=== PATIENT | male | born 1950 | race Caucasian/White ===

== ENCOUNTER → 2022-01-18 11:47 | Outpatient (BNVA) | payer MEDICARE, SELFPAY | PROVIDERS: PCP Family Medicine; Visit Provider Family Medicine | DX: Z51.81 Encounter for therapeutic drug level monitoring (principal); E11.9 Type 2 diabetes mellitus without complications; E53.8 Deficiency of other specified B group vitamins; R35.0 Frequency of micturition; Z13.220 Encounter for screening for lipoid disorders; I10 Essential (primary) hypertension; I25.10 Atherosclerotic heart disease of native coronary artery without angina pectoris | CPT/HCPCS: 80053; 80061; 82607; 83036; 84153; 85025 ==

== ENCOUNTER → 2022-06-14 10:26 | Outpatient (BNVA) | payer MEDICARE, SELFPAY | PROVIDERS: PCP Family Medicine; Visit Provider Family Medicine | DX: Z51.81 Encounter for therapeutic drug level monitoring (principal); E11.9 Type 2 diabetes mellitus without complications; I10 Essential (primary) hypertension; E78.5 Hyperlipidemia, unspecified | CPT/HCPCS: 80053; 80061; 83036; 85025 ==

== ENCOUNTER → 2022-12-20 10:17 | Outpatient (BNVA) | payer MEDICARE, SELFPAY | PROVIDERS: PCP Family Medicine; Visit Provider Family Medicine | DX: Z51.81 Encounter for therapeutic drug level monitoring (principal); E11.9 Type 2 diabetes mellitus without complications; R35.0 Frequency of micturition; E53.8 Deficiency of other specified B group vitamins; I10 Essential (primary) hypertension; E78.5 Hyperlipidemia, unspecified; Z13.220 Encounter for screening for lipoid disorders | CPT/HCPCS: 80053; 80061; 82607; 83036; 84153; 85025 ==

== ENCOUNTER → 2023-06-06 11:11 | Outpatient (BNVA) | payer MEDICARE, SELFPAY | PROVIDERS: PCP Family Medicine; Visit Provider Family Medicine | DX: Z51.81 Encounter for therapeutic drug level monitoring (principal); E11.9 Type 2 diabetes mellitus without complications; E55.9 Vitamin D deficiency, unspecified; Z13.220 Encounter for screening for lipoid disorders; Z79.899 Other long term (current) drug therapy | CPT/HCPCS: 80053; 80061; 82306; 83036; 85025 ==

== ENCOUNTER → 2024-08-14 12:16 | Outpatient (BNVA) | payer MEDICARE, SELFPAY | PROVIDERS: PCP Family Medicine; Visit Provider Family Medicine | DX: Z00.00 Encounter for general adult medical examination without abnormal findings (principal); E11.9 Type 2 diabetes mellitus without complications; E61.1 Iron deficiency; Z13.6 Encounter for screening for cardiovascular disorders; E55.9 Vitamin D deficiency, unspecified; R35.0 Frequency of micturition; Z51.81 Encounter for therapeutic drug level monitoring; E53.8 Deficiency of other specified B group vitamins | CPT/HCPCS: 80053; 80061; 82306; 82607; 83036; 83550; 84153; 85025 ==

== ENCOUNTER 2024-10-28 08:09 | Outpatient (CLI) | payer MEDICARE, SELFPAY ==
--- NOTE | 2024-10-28 | ECG_ITS ---
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 Interpretive Statements Lung unchanged pre/post procedure; Intraprocedure shortess of breath; Symptoms resoled by discharge PROCEDURE: At the baseline, the EKG revealed sinus tachycardia with first-degree AV block nonspecific ST-T changes in the anterolateral and inferior leads. The baseline heart was 93 bpm with a blood pressue of 173/103 mm of Hg Lexiscan was infused over a period of 20 seconds. A total of 0.4 milligrams of Lexiscan was infused. The stress phase was continued for a total of 5 minutes. Heart rate at the end of the stress phase was 107 bpm with a blood pressure 150/90 mm of Hg. The EKG at the peak infusion revealed ST depression of greater than 1 mm in leads V2 and V3. Sestamibi was injected 20 seconds after the Lexiscan infusion. Heart rate at the end of the recovery phase was 109 bpm with a blood pressure of 138/88 mm of Hg. the EKG reverted back to the baseline CONCLUSION: 1. Abnormal EKG response to Lexiscan infusion suggestive of anterior wall ischemia 2. No LexiScan induced chest pain or cardiac arrhythmia 3. Normal blood pressure and heart rate response 4. Sestamibi/sestamibi perfusion scan pending; see separate report. Electronically Signed On 11-03-2024 22:40:44 CDT by David Mccauley M.D. [email or web address]
--- NOTE | 2024-10-28 08:18 | NMCV_ITS ---
NM tejal perf SPECT r/s* [id number] Antonio Escoto Age: 73 Gender: M : 1950 Exam Date: 10/28/2024 09:26 Ordering Phys: David Reyes MD Technologist: KEITH Bello Exam Location: [facility] Indications: cp STRESS TEST Please see separate stress test report in [facility] for full findings IMAGE PROTOCOL Rest/Stress 1 Lexiscan Day Radiopharmaceutical Dose (mCi) Administration Site Administered by Rest: Tc-99m 10.6 IV Elicia Black, SLOTTER OPERATOR Sestamibi Stress:Tc-99m 32.4 IV Elicia Black, SLOTTER OPERATOR Sestamibi Rest: 28-Oct-2024 60 Discovery 630 Stress: 28-Oct-2024 30 Discovery 630 0.4mg Lexiscan. Images obtained in supine and prone position. SPECT RESULTS Technical Quality: Good Raw Data Analysis: Normal Image Corrections: No attenuation or motion correction applied Summed Stress Score: 4 Summed Rest Score: 3 Summed Difference Score: 4 PERFUSION FINDINGS Moderate area of moderately decreased tracer uptake involving the basal and mid inferior wall segments. Significant reversibility was noted in the segments at rest FUNCTIONAL RESULTS (calculated via Gated SPECT) Stress Image LV EF (%): 65 Stress EDV (mL):74 TID: 1.14 Stress ESV (mL):26 FUNCTIONAL FINDINGS: Segmental wall motion analysis revealing no gross wall motion abnormalities IMPRESSIONS 1. Myocardial perfusion imaging revealing moderate area reversible defect involving the inferior wall segments suggesting ischemia in the distribution of the right coronary artery 2. Normal LV ejection fraction 65%. 3. LV wall motion analysis revealing no gross wall motion abnormalities. 4. Normal LV volume No similar previous studies are available for comparison Dr David Mccauley MD [facility] (Electronically Signed) Final Date: 28 October 2024 11:40 S
[2024-10-28 08:29] VITALS: BMI 28.9
[2024-10-28 10:11] VITALS: BP 138/80; PULSE 112
== END 2024-10-28 08:10 | disposition home or self-care (01) ==
LOC: CDL 08:10
PROVIDERS: PCP Family Medicine; Visit Provider Family Medicine
DX: R07.9 Chest pain, unspecified (principal); R93.1 Abnormal findings on diagnostic imaging of heart and coronary circulation
CPT/HCPCS: 36415; 78452; 93017; 96374; A9500; J2785

== ENCOUNTER → 2024-11-06 15:36 | Outpatient (BNVA) | payer MEDICARE, SELFPAY | PROVIDERS: PCP Family Medicine; Visit Provider Internal Medicine Cardiovascular Disease | DX: R94.39 Abnormal result of other cardiovascular function study (principal); I25.10 Atherosclerotic heart disease of native coronary artery without angina pectoris; I10 Essential (primary) hypertension; E11.9 Type 2 diabetes mellitus without complications; Z79.84 Long term (current) use of oral hypoglycemic drugs; Z95.1 Presence of aortocoronary bypass graft; Z87.891 Personal history of nicotine dependence | CPT/HCPCS: 99204 ==

== ENCOUNTER 2024-11-21 09:33 | Outpatient (CLI) | payer MEDICARE, SELFPAY ==
[2024-11-21 09:59] LABS: Hematocrit 39.6 % (37-53); Hemoglobin 13.30 g/dL (11.27-16.99); Mean Corpuscular HGB Conc 33.6 g/dL (30-55); Mean Corpuscular Hemoglobin 31.4 pg (27-33); Mean Corpuscular Volume 93.4 fl (82-101); Nucleated Red Blood Cells % 0 %; Platelet Count 209 10^3/cmm (157-399); Red Blood Count 4.24 10^6/uL (3.85-5.65); White Blood Count 5.70 10^3/uL (3.29-11.43)
[2024-11-21 10:14] LABS: INR 1.01 (0.83-1.21)
[2024-11-21 10:19] LABS: Anion Gap 14.0 (5-19); Blood Urea Nitrogen 22 mg/dL (8-23); Calcium 9.2 mg/dL (8.5-10.5); Carbon Dioxide 27 mmol/L (22-29); Chloride 104 mmol/L (98-107); Glucose 115 mg/dL (65-115); Iron 122 ug/dL (59-158); Osmolality Calculated 294 mOsm/kg (285-295); Potassium 5.0 mmol/L (3.5-5.1); Sodium 140 mmol/L (136-145)
== END 2024-11-21 09:34 | disposition home or self-care (01) ==
PROVIDERS: PCP Family Medicine; Visit Provider Internal Medicine Cardiovascular Disease
DX: Z00.00 Encounter for general adult medical examination without abnormal findings (principal); I10 Essential (primary) hypertension; R94.39 Abnormal result of other cardiovascular function study; R07.9 Chest pain, unspecified; R58 Hemorrhage, not elsewhere classified; E61.1 Iron deficiency
CPT/HCPCS: 36415; 80048; 83540; 85025; 85610

== ENCOUNTER 2024-11-26 09:00 | Outpatient (CLI) | payer MEDICARE, SELFPAY ==
[2024-11-26] VITALS (24 sets, daily range): BP systolic 131–160; BP diastolic 85–114; PULSE 73–125; RESP 11–20; TEMP 36.6; O2SAT 91–100; BMI 27.3
--- NOTE | 2024-11-26 09:00 | XACV_ITS ---
Exam Room: 2 Ht: 175 cm Wt: 89 kg BSA: 2.10 m2 Gender: Male : 1950 Any Known Allergies: Codeine Exam Priority: Routine Procedure(s): Procedure Description: Diagnostic procedure Procedure Description: Left Heart Catheterization Procedure Description: Left ventriculography Procedure Description: Aortogram Procedure Description: Venous Graft Catheterization Procedure Description: MCFARLANE Graft Catheterization Procedure Description: Coronary Angiography Manuel PALAFOX; Diagnostic Cath Status: Elective Diagnostic Findings * Left Main: luminal irregularities 20% stenosis, DIVYA: 3 flow. * Mid Left Anterior Descending: obstructive 70% stenosis, DIVYA: 3 flow. * Mid Left Anterior Descending: total occlusion, DIVYA: 3 flow. * Left Internal Mammary Artery to Distal Left Anterior Descending graft: patent. * Proximal Circumflex: moderate 50% stenosis, DIVYA: 3 flow. * Proximal Right Coronary Artery: significant 80% stenosis, DIVYA: 3 flow. * Ramus: significant 80% stenosis, DIVYA: 3 flow. * CIRC AV: significant 80% stenosis, DIVYA: 3 flow. * One graft visualized. * Coronary angiography shows left dominance. Conclusions 1. 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 2. One coronary graft visualized: all grafts patent. 3. Patient has prior CABG. 4. Normal left ventricular systolic function. Ejection fraction of 60%. 5. Indication: Shortness of breath unexplained: Abnormal stress testPatient had a history of bypass surgery according to him he has a for bypass graft however we were able to see only MCFARLANE to LAD and SVG to ramus intermedius both were patent. Despite of aortogram performed we were not able to see any more grafts.Patient has nondominant right small caliber vessel which has significant proximal 80% stenosis not amenable to intervention it is the reason we are the stress test was positive.Patient has distal bifurcating left circumflex which is a 90% stenosis small caliber in the distal segment not amenable to intervention therefore will be treated medicallyLeft main: Distal 20% stenosis LAD: Distal 100% occluded Left circumflex proximal 50% stenosis distal is small caliber bifurcating vessel with 90% stenosis not amenable to intervention Ramus intermedius has proximal 80% stenosis with patent graft feeding to it RCA is nondominant small caliber vessel with proximal significant 80 to 90% stenosis not amenable to intervention will be treated medically. I was not able to see any graft it is a small vessel I do not think so there will be a graft to it. 6. Aortogram: RWANDAN view aortogram was obtained which showed saphenous venous graft to ramus intermedius no other graft was visualized. There was no aneurysm. Recommendations * 1-Return to inpatient for close monitoring and routine cath care 2-Risk factor modification for secondary prevention 3-Statin and aspirin 81 mg life-long, if tolerated 4-Risk factor modification 5-Continue optimal medical management 6-Follow up with Dr. Jackson in four weeks and your primary care in 10 days. Diagnostic RX Recommendation: medical therapy and/or counseling Ventriculography Ejection Fraction: 60.0 % Pressures Phase:Rest AO : 130 / 71 ( 95 ) @ 11:31:00 AM 135 / 78 ( 105 ) @ 11:35:00 AM 113 / 65 ( 87 ) @ 11:44:00 AM 140 / 46 ( 95 ) @ 12:00:00 PM LV : 140 / -5 / 14 @ 11:59:00 AM 136 / -1 / 15 @ 12:00:00 PM Valves Phase:DefaultPhase AV : 0.0 @ 11:11:04 AM AV Mean Gradient: 0.0 @ 11:11:04 AM Clinical Evaluation EBL: 5mL-10mL Procedural Details Procedure Consent Obtained. Admit Source: Out Patient. Hemodynamic formulas in Rest were re-calculated based on hemoglobin value from 11/21/2024 9:51:00 AM. Pre-Procedure Time Out. Identified patient by full name and date of as verbalized by the patient/guarantor. Does the consent match the physician's order: Yes. Accurate & Complete Informed Consent: Yes. Inpatient/Outpatient History & Physical on Chart: Yes. If H&P is completed, is and addenduem needed: No; If yes, is the addendum complete: N/A. Visualize and Verify Site with Patient/Guarantor: N/A. Relevant Radiology Images available: N/A. The risks, benefits, and alternatives of sedation and/or procedure were discussed by physician. The patient agrees to continue. Procedure started. [facility] Clinical Fraility Score: 3: Managing Well. Insert Operator Indications: Worsening Angina. Chest Pain Symptom Assessment: Typical Angina Symptoms. Correct patient, site and procedure confirmed by cath team. Current diagnosis: Chest Pain. PERRLA. Strong, equal hand chart clerk bilaterally. Lungs clear x 5 lobes. IV Site on Arrival: 20 gauge in the right anticubital. IV Fluids: 0.9% NaCl at 100ml/hr. 0 mL infused prior to cheesemaking laborer. Pre Procedural Pulses: bilateral radial was 2+. Pre Procedural Pulses: bilateral dorsalis pedis was 1+. Pre Procedural Pulses: bilateral posterior tibial was 1+. Oxygen started at 2liters/min via nasal canula. bilateral groins was prepped with chloroprep then draped in the usual sterile fashion. Baseline sample Acquired. HR: 97 BPM. Physician notified. Physician arrived. Physician scrubbed in. Immediate Pre-Procedure Time Out. Correct Patient: Yes; Correct Procedure: Yes; Correct Site: Yes; Correct Patient Position: Yes; Correct Supplies: Yes; Dried Flammable Prep: Yes; Blood Products Available: No;. Lidocaine 1% infiltrated to the right groin. Arterial access obtained with micropuncture set. An attempt to gain access to the right femoral artery was unsuccessful. Manual pressure was held as needed to stop the bleeding. Arterial access obtained with micropuncture set. A 5 equatorial guinean JL4 catheter in over wire. A Right femoral angiogram was performed to determine safe placement of closure device. Wire out. Multiple views taken of left coronary artery. Catheter removed over the standard wire. A 5 equatorial guinean JR4 catheter in over wire. Multiple views taken of right coronary artery. SVG's to RAMUS visualized and patent. Catheter redirected for visualization of MCFARLANE. MCFARLANE to LAD visualized. Catheter removed over the standard wire. A 5 equatorial guinean AL1 catheter in over wire. Side port of sheath attached to Normal Saline flush at KVO to maintain patency. Physician review of cine films. Catheter removed over the exchange wire. A 5 equatorial guinean Angled Pig catheter in over wire. EDP Sample taken: LV 140/-5,14; HR: 107 BPM; SpO2: 98%. LV gram performed in [place] @ 10 mL/second for a total of 30 mL. EDP Sample taken: LV 136/-2,15; HR: 92 BPM; SpO2: 98%. Pullback taken: LV Off; AO 140/46(95); Mean: 0mmHg, Peak to Peak: 0mmHg, SEP: 2sec/min; HR: 100 BPM; SpO2: 99%. Aortogram performed in RWANDAN @ 10 mL/second for a total of 30 mL. Aortogram performed in RWANDAN @ 10 mL/second for a total of 30 mL. Catheter removed over the standard wire. Lidocaine 1% infiltrated to the right groin. Chlorapep to right groin. A Angio-Seal VIP ([facility] Thor) was successful obtaining hemostatsis at the Right Femoral artery insertion site. LOT # [id number] EXP 07-24-2025. Post Procedure: Pulses reassessed and unchanged. PERRLA. Strong, equal hand chart clerk bilaterally. No VTE prophylaxis required. Medication's Wasted: Heparin = 1000 unit. Medication's Wasted: Other = Fentanyl 50mcg, Versed 1 mg. Total IV fluids: 50 mL. Post-op diagnosis: Multi-vessel CAD, Patent MCFARLANE graft, Patent SVG to Ramus graft. Complications: None. Estimated blood loss: 5mL-10mL. Responsiveness - Normal response to verbal stimuli; alert and oriented, PERRLA. Airway - Unaffected, no intervention required; spontaneous ventilation. Circulation: W/N/L, pulses unchanged. Nausea/Vomiting: No. Procedure completed. Patient transferred by stretcher to CPRU. Vital chart was stopped. Access Site Site: Right Femoral artery Sheath Size: 6 Fr Hemostasis Method: Angio-Seal VIP (St. Thor) Hemostasis Success: Successful Procedure Medications Start: 10:22 AM Stop: 10:22 AM Medication: Versed Amount: 1 mg Route: I.V. Start: 10:22 AM Stop: 10:22 AM Medication: Fentanyl Amount: 50 mcg Route: I.V. I, the attending physician, have reviewed and verified all procedure medications. Yes, all medications given per verbal order History/Risk Factors Hypertension: Yes Dyslipidemia: Yes Peripheral Arterial Disease (PAD): No Myocardial Infarction (MO): No Obesity: No Renal Disease: No Tobacco Use: Former Prior Interventions PCI: No CABG: Yes Valve Surgery: No Report Signatures Finalized by Viraj Jackson MD on 11/26/2024 11:43 AM
--- NOTE | 2024-11-26 10:06 | W.PM.OPSUD ---
Surgery/Procedure H&P Update DATE OF PROCEDURE: November 26, 2024 DATE H&P PERFORMED: 11/06/24 H&P UPDATE INFORMATION: I have reviewed H&P completed within last 30 days, I have examined patient prior to procedure and No changes to prior documentation PREOP DIAGNOSIS: Chest pain/shortness of breath/abnormal stress PRIMARY INDICATION FOR PROCEDURE: Abnormal stress test History of CABG PLANNED PROCEDURE: Operation Date: 11/26/24 10:00 Proposed Procedures p Cardiac Catheterization - C w/wo LV & Coros(Left) - Viraj Jackson MD PATIENT REASSESSED PRIOR TO SEDATION, WITH NO CHANGE NOTED: Yes PHYSICAL EXAM: alert, oriented x 3, clear to auscultation bilaterally, regular rate & rhythm and operative site marked AIRWAY EVAL/ANESTHESIA PLAN: ASA II, Risks, benefits & alternatives of sedation and/or procedure discussed and Patient agrees to continue as planned ADDITIONAL INFORMATION: All risk-benefit and alternative for the procedure has been explained to the patient. Patient understand 2% risk of stroke major bleed. Patient understands 5% risk of urgent emergent vascular bypass surgery pseudoaneurysm hematoma contrast induced nephropathy infection. Patient would like to proceed with it.
--- NOTE | 2024-11-26 11:07 | ECG_ITS ---
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 Measurements Intervals [place] Rate: 120 P: -17 CA: 198 QRS: 40 QRSD: 97 T: 8 QT: 301 QTc: 426 Interpretive Statements SINUS TACHYCARDIA First-degree AV block LOW QRS VOLTAGE IN EXTREMITY LEADS [QRS DEFLECTION < 0.5 mV IN LIMB LEADS] ABNORMAL RHYTHM ECG No previous ECG available for comparison Electronically Signed On 11-27-2024 09:25:33 CDT by David Mccauley M.D. [email or web address]
[2024-11-26] MEDS: metoprolol succinate ER (24 HR) 25 mg Tablet PO (11:44)
== END 2024-11-26 15:17 | disposition home or self-care (01) ==
PROVIDERS: PCP Family Medicine; Visit Provider Internal Medicine Cardiovascular Disease
DX: I25.10 Atherosclerotic heart disease of native coronary artery without angina pectoris (principal); I25.82 Chronic total occlusion of coronary artery; Z95.1 Presence of aortocoronary bypass graft; I10 Essential (primary) hypertension; E78.5 Hyperlipidemia, unspecified; Z87.891 Personal history of nicotine dependence; E11.9 Type 2 diabetes mellitus without complications; Z79.84 Long term (current) use of oral hypoglycemic drugs
CPT/HCPCS: 36415; 93005; 93459; 99152; 99153; C1760; C1769; C1887; C1894; G0269; J1644; J2250; J3010; J7030; J9999; Q0163; Q9967

== ENCOUNTER → 2024-12-03 14:23 | Outpatient (BNVA) | payer MEDICARE, SELFPAY | PROVIDERS: PCP Family Medicine; Visit Provider Internal Medicine Cardiovascular Disease | DX: I25.810 Atherosclerosis of coronary artery bypass graft(s) without angina pectoris (principal); I10 Essential (primary) hypertension; Z87.891 Personal history of nicotine dependence | CPT/HCPCS: 99214 ==

== ENCOUNTER → 2025-02-19 16:03 | Outpatient (BNVA) | payer MEDICARE, SELFPAY | PROVIDERS: PCP Family Medicine; Visit Provider Internal Medicine Cardiovascular Disease | DX: I10 Essential (primary) hypertension (principal); I25.10 Atherosclerotic heart disease of native coronary artery without angina pectoris; G72.0 Drug-induced myopathy; T46.6X5A Adverse effect of antihyperlipidemic and antiarteriosclerotic drugs, initial encounter; Z87.891 Personal history of nicotine dependence | CPT/HCPCS: 99214 ==

== ENCOUNTER 2025-02-28 08:14 | Outpatient (CLI) | payer MEDICARE, SELFPAY | END 2025-02-28 08:15 | disposition home or self-care (01) | PROVIDERS: PCP Family Medicine; Visit Provider Internal Medicine Cardiovascular Disease | DX: I10 Essential (primary) hypertension (principal) | CPT/HCPCS: 36415; 82550 ==